=== PATIENT | female | born 1970 | race Caucasian/White ===

== ENCOUNTER 2017-06-01 11:14 | Emergency (ER) | payer OTHER ==
[~2017-06-01] VITALS: Ht 167.6 cm; Wt 62.6 kg
[~2017-06-01 11:14] MED LIST: ACETAMINOPHEN-1 EAC1 PO; AMBIEN 5 MG TABL5 M1 PO; BUSPIRONE HCL10 MG PO; DEXILANT60 MG PO; FLONASE 0.05%50 MCG NASAL; HYDROCODON-ACE1 EAC7 PO; MUCINEX TA600 MG/TA2 PO; NAPROSYN500 MG PO; PROAIR HFA8.5 GM INH; PROTONIX 20 MG20 M1 PO; QVAR8.7 G1 INH; XANAX1 MG PO; ZOLOFT100 MG PO
[2017-06-01] MEDS ORDERED: XANAX1 MG PO (11:20)
[2017-06-01] MEDS ORDERED: NUCYNTA50 MG PO ×2 (11:21)
[2017-06-01 12:06] LABS: URINE BILIRUBIN NEGATIVE (Negative); URINE BLOOD NEGATIVE (Negative); URINE CLARITY CLEAR; URINE COLOR YELLOW; URINE GLUCOSE-RANDOM NEGATIVE (Negative); URINE KETONES NEGATIVE (Negative); URINE LEUKOCYTES NEGATIVE (Negative); URINE NITRITE NEGATIVE (Negative); URINE PROTEIN NEGATIVE (Negative); URINE UROBILINOGEN 0.2 E.U./dl (0.2-1.0)
[2017-06-01 12:14] LABS: AMP/METHAMP Negative (Negative); BARBITURATES Negative (Negative); BENZODIAZEPINES Negative (Negative); COCAINE Negative (Negative); METHADONE Negative (Negative); OPIATES Negative (Negative); PCP Negative (Negative); THC Negative (Negative)
[2017-06-01 12:21] LABS: HEMATOCRIT 42.8 % (37.0-47.0); HEMOGLOBIN 14.1 gm/dL (12.0-15.0); MCH 30.9 pg (26.0-34.0); MCV 93.4 fL (80.0-100.0); MPV 6.5 fl. (7.2-11.1); RBC 4.58 mil/uL (4.20-5.00); RDW-CV 13.9 % (10.5-14.5); WBC 3.8 thou/uL (4.0-11.0)
[2017-06-01 12:29] LABS: CALCIUM 9.5 mg/dL (8.5-10.1); CREATININE 0.7 mg/dL (0.6-1.3); POTASSIUM 3.7 mmol/L (3.5-5.1)
[2017-06-01 12:34] LABS: ALBUMIN 4.1 g/dL (3.4-5.0); TOTAL BILIRUBIN 0.2 mg/dL (<0.1-1.0); TOTAL PROTEIN 7.8 g/dL (6.4-8.2)
[2017-06-01 12:50] LABS: ACETAMINOPHEN 16 ug/mL (10-30); ALCOHOL < 10 mg/dL (<10); SALICYLATE < 2.8 mg/dL (2.8-20.0)
[2017-06-01] MEDS ORDERED: ATIVAN1 MG PO ×2 (16:28)
[2017-06-01 16:59] VITALS: BP 107/69
== END 2017-06-01 17:00 | disposition home or self-care (01) ==
LOC: M.ERS 11:14
PROVIDERS: Personal Emergency Response Attendant
DX: F41.9 Anxiety disorder, unspecified (principal); F32.9 Major depressive disorder, single episode, unspecified; Z90.710 Acquired absence of both cervix and uterus; Z87.891 Personal history of nicotine dependence

== ENCOUNTER 2017-06-15 17:36 | Emergency (ER) | payer OTHER ==
[~2017-06-15] VITALS: Ht 167.6 cm; Wt 63.5 kg
[~2017-06-15 17:36] MED LIST changes: +ATIVAN1 MG PO; +NUCYNTA50 MG PO
[2017-06-15] MEDS ORDERED: AMOXICILLI125 MG/51 PO (17:52)
[2017-06-15] MEDS ORDERED: ZOLOFT25 MG PO (17:52)
[2017-06-15] MEDS ORDERED: LIORESAL 10 MG10 MG PO (17:52)
[2017-06-15 18:42] LABS: CALCIUM 8.9 mg/dL (8.5-10.1); CREATININE 0.6 mg/dL (0.6-1.3); POTASSIUM 3.7 mmol/L (3.5-5.1)
[2017-06-15 18:44] LABS: APTT 27.5 Seconds (25.0-31.3)
[2017-06-15 18:47] LABS: ALBUMIN 3.4 g/dL (3.4-5.0); TOTAL BILIRUBIN 0.2 mg/dL (<0.1-1.0); TOTAL PROTEIN 6.6 g/dL (6.4-8.2)
[2017-06-15 19:37] LABS: ABSOLUTE LYMPHOCYTES 1.3 thou/uL (0.8-5.3); ABSOLUTE MONOCYTES 0.3 thou/uL (0.0-1.2); ABSOLUTE NEUTROPHILS 3.9 thou/uL (1.6-8.1); BASOPHILS 0.7 %; EOSINOPHILS 0.3 %; HEMATOCRIT 33.5 % (37.0-47.0); LYMPHOCYTES 23.9 %; MCH 30.9 pg (26.0-34.0); MCHC 32.9 g/dL (28.0-37.0); MONOCYTES 4.8 %; MPV 6.9 fl. (7.2-11.1); NUCLEATED RBCS 0 /100WBC; PLATELET COUNT* 222 thou/uL (150-400); POLYS 70.3 %; RBC 3.56 mil/uL (4.20-5.00); RDW-CV 13.4 % (10.5-14.5); WBC 5.5 thou/uL (4.0-11.0)
[2017-06-15] MEDS ORDERED: PERCOCET PO (21:41)
[2017-06-15] MEDS ORDERED: ZOFRAN ODT4 MG PO (21:41)
[2017-06-15 21:59] VITALS: BP 101/51
--- NOTE | 2017-06-16 11:47 | EKG ---
[place] [address] ELECTROCARDIOGRAM REPORT Name: MARIUM GARAY Room: [facility]#: [id number] Admission: 06/15/17 Attend Phys: Discharge: 06/15/17 Date of : 68 Report #: [id number] THIS REPORT FOR: //name// [facility] ED Test Date: 2017-06-15 Test Time: 19:32:13 Pat Name: MARIUM GARAY Department: Room: Gender: F Benefit Authorizer: TIO : 1970 Requested By: Bobbi Seymour Order Number: [id number] MD: Samuel Wong Measurements Intervals [place] Rate: 53 P: 37 MO: 116 QRS: 65 QRSD: 101 T: 44 QT: 449 QTc: 422 Interpretive Statements Sinus rhythm Borderline short MO interval Compared to ECG 02/27/2017 07:26:49 No significant changes Electronically Signed On 06-16-2017 11:47:29 NEUROUROLOGIST by Samuel Wong [email or web address] <ELECTRONICALLY SIGNED> By: Samuel Wong MD, [facility] 06/16/17 1147 [id number] 31 Samuel Wong MD, FACC /EPI
== END 2017-06-15 21:59 | disposition home or self-care (01) ==
LOC: M.ERS 17:36
PROVIDERS: Physician Assistant
DX: K04.7 Periapical abscess without sinus (principal); Z86.718 Personal history of other venous thrombosis and embolism; Z98.890 Other specified postprocedural states; Z90.710 Acquired absence of both cervix and uterus; Z87.891 Personal history of nicotine dependence

== ENCOUNTER 2017-06-22 23:32 | Emergency (ER) | payer OTHER ==
[~2017-06-22] VITALS: Ht 167.6 cm; Wt 63.5 kg
[~2017-06-22 23:32] MED LIST changes: +AMOXICILLI125 MG/51 PO; +LIORESAL 10 MG10 MG PO; +PERCOCET PO; +ZOFRAN ODT4 MG PO; +ZOLOFT25 MG PO
[2017-06-23 00:06] LABS: ABSOLUTE EOSINOPHILS 0.1 thou/uL (0.0-0.7); ABSOLUTE LYMPHOCYTES 2.7 thou/uL (0.8-5.3); ABSOLUTE MONOCYTES 0.4 thou/uL (0.0-1.2); ABSOLUTE NEUTROPHILS 2.1 thou/uL (1.6-8.1); BASOPHILS 0.9 %; HEMATOCRIT 33.6 % (37.0-47.0); HEMOGLOBIN 11.2 gm/dL (12.0-15.0); LYMPHOCYTES 50.4 %; MCH 31.1 pg (26.0-34.0); MCHC 33.4 g/dL (28.0-37.0); MONOCYTES 8.3 %; MPV 6.5 fl. (7.2-11.1); NUCLEATED RBCS 0 /100WBC; PLATELET COUNT* 202 thou/uL (150-400); POLYS 39.4 %; RBC 3.61 mil/uL (4.20-5.00); RDW-CV 13.6 % (10.5-14.5); WBC 5.3 thou/uL (4.0-11.0)
[2017-06-23 00:13] LABS: CALCIUM 8.6 mg/dL (8.5-10.1); CREATININE 0.8 mg/dL (0.6-1.3); POTASSIUM 3.6 mmol/L (3.5-5.1)
[2017-06-23 00:17] LABS: ALBUMIN 3.2 g/dL (3.4-5.0); TOTAL BILIRUBIN 0.2 mg/dL (<0.1-1.0); TOTAL PROTEIN 6.8 g/dL (6.4-8.2)
[2017-06-23 02:17] LABS: URINE BILIRUBIN NEGATIVE (Negative); URINE BLOOD NEGATIVE (Negative); URINE CLARITY CLEAR; URINE COLOR YELLOW; URINE GLUCOSE-RANDOM NEGATIVE (Negative); URINE KETONES NEGATIVE (Negative); URINE LEUKOCYTES-REFLEX NEGATIVE (Negative); URINE NITRITE-REFLEX NEGATIVE (Negative); URINE PROTEIN NEGATIVE (Negative); URINE UROBILINOGEN 0.2 E.U./dl (0.2-1.0)
[2017-06-23] MEDS ORDERED: CIPROFLOXACIN500 M1 PO (02:36)
[2017-06-23] MEDS ORDERED: FLAGYL500 MG PO (02:58)
[2017-06-23 03:25] VITALS: BP 122/71
== END 2017-06-23 03:25 | disposition home or self-care (01) ==
LOC: M.ERS 23:32
PROVIDERS: Emergency Medicine
DX: R10.11 Right upper quadrant pain (principal); Z87.891 Personal history of nicotine dependence

== ENCOUNTER 2017-09-06 16:14 | Emergency (ER) | payer OTHER ==
[~2017-09-06] VITALS: Ht 160 cm; Wt 61.2 kg
[~2017-09-06 16:14] MED LIST changes: +CIPROFLOXACIN500 M1 PO; +FLAGYL500 MG PO
[2017-09-06 17:35] LABS: URINE BILIRUBIN NEGATIVE (Negative); URINE BLOOD NEGATIVE (Negative); URINE CLARITY CLEAR; URINE COLOR YELLOW; URINE GLUCOSE-RANDOM NEGATIVE (Negative); URINE KETONES NEGATIVE (Negative); URINE LEUKOCYTES NEGATIVE (Negative); URINE NITRITE NEGATIVE (Negative); URINE PROTEIN NEGATIVE (Negative); URINE UROBILINOGEN 0.2 E.U./dl (0.2-1.0)
[2017-09-06 17:36] LABS: ABSOLUTE LYMPHOCYTES 2.1 thou/uL (0.8-5.3); ABSOLUTE MONOCYTES 0.5 thou/uL (0.0-1.2); ABSOLUTE NEUTROPHILS 3.9 thou/uL (1.6-8.1); BASOPHILS 0.6 %; EOSINOPHILS 0.2 %; HEMATOCRIT 39.8 % (37.0-47.0); HEMOGLOBIN 13.2 gm/dL (12.0-15.0); LYMPHOCYTES 32.7 %; MCH 31.1 pg (26.0-34.0); MCHC 33.2 g/dL (28.0-37.0); MCV 93.7 fL (80.0-100.0); MONOCYTES 7.1 %; MPV 6.5 fl. (7.2-11.1); NUCLEATED RBCS 0 /100WBC; PLATELET COUNT* 243 thou/uL (150-400); POLYS 59.4 %; RBC 4.25 mil/uL (4.20-5.00); RDW-CV 13.7 % (10.5-14.5); WBC 6.6 thou/uL (4.0-11.0)
[2017-09-06 17:41] LABS: ANION GAP 5 mmol/L (7-16); BUN 10 mg/dL (7-18); CALCIUM 9.5 mg/dL (8.5-10.1); CHLORIDE 111 mmol/L (98-107); CO2 30 mmol/L (21-32); CREATININE 0.6 mg/dL (0.6-1.3); GLUCOSE 117 mg/dL (70-99); POTASSIUM 4.6 mmol/L (3.5-5.1); SODIUM 146 mmol/L (136-145)
[2017-09-06 17:46] LABS: AMP/METHAMP Negative (Negative); BARBITURATES Negative (Negative); BENZODIAZEPINES POSITIVE (Negative); COCAINE Negative (Negative); OPIATES Negative (Negative); PCP Negative (Negative); THC Negative (Negative)
[2017-09-06 17:47] LABS: ALBUMIN 3.5 g/dL (3.4-5.0); ALKALINE PHOSPHATASE 106 U/L (46-116); SGOT 26 U/L (15-37); SGPT 48 U/L (30-65); TOTAL BILIRUBIN 0.2 mg/dL (<0.1-1.0); TROPONIN-I LEVEL <0.06 ng/mL (<0.06)
[2017-09-06] MEDS ORDERED: XANAX1 MG PO (17:56)
[2017-09-06] MEDS ORDERED: CLONAZEPAM 1 MG1 M1 PO (17:56)
[2017-09-06 18:47] VITALS: BP 104/62
[2017-09-06 19:26] LABS: METHADONE Negative (Negative)
--- NOTE | 2017-09-07 14:27 | EKG ---
[place] [address] ELECTROCARDIOGRAM REPORT Name: MARIUM GARAY Room: [facility]#: [id number] Admission: 09/06/17 Attend Phys: Discharge: 09/06/17 Date of : 68 Report #: [id number] THIS REPORT FOR: //name// [facility] ED Test Date: 2017-09-06 Test Time: 16:28:54 Pat Name: MARIUM GARAY Department: Room: Gender: F Helpdesk Manager: TEDDY : 1970 Requested By: Christelle Hernandez Order Number: [id number] MD: Anastacio Lucio Measurements Intervals [place] Rate: 62 P: 55 NV: 123 QRS: 57 QRSD: 114 T: 32 QT: 416 QTc: 423 Interpretive Statements Sinus rhythm Borderline intraventricular conduction delay Compared to ECG 06/15/2017 19:32:13 No significant changes Electronically Signed On 09-07-2017 14:27:19 CDT by Anastacio Lucio [email or web address] <ELECTRONICALLY SIGNED> By: Anastacio Lucio MD, [facility] 09/07/17 1427 162 27 Anastacio Lucio MD, [facility] /EPI
== END 2017-09-06 18:48 | disposition home or self-care (01) ==
LOC: M.ERS 16:14
PROVIDERS: Physician Assistant
DX: R41.82 Altered mental status, unspecified (principal); T42.4X1A Poisoning by benzodiazepines, accidental (unintentional), initial encounter; Z87.891 Personal history of nicotine dependence; Y92.89 Other specified places as the place of occurrence of the external cause

== ENCOUNTER 2017-09-24 18:41 | Emergency (ER) | payer OTHER ==
[~2017-09-24] VITALS: Ht 167.6 cm; Wt 68.0 kg
[~2017-09-24 18:41] MED LIST changes: +CLONAZEPAM 1 MG1 M1 PO
[2017-09-24] MEDS ORDERED: BRINTELLIX10 MG (19:03)
[2017-09-24] MEDS ORDERED: NORCO 5-325 TA1 EACH PO (20:17)
[2017-09-24 20:35] VITALS: BP 138/71
== END 2017-09-24 20:36 | disposition home or self-care (01) ==
LOC: M.ERS 18:41
DX: S01.112A Laceration without foreign body of left eyelid and periocular area, initial encounter (principal); F41.9 Anxiety disorder, unspecified; Z87.891 Personal history of nicotine dependence; Z90.710 Acquired absence of both cervix and uterus; X58.XXXA Exposure to other specified factors, initial encounter; Y93.89 Activity, other specified; Y92.89 Other specified places as the place of occurrence of the external cause; Y99.8 Other external cause status